=== PATIENT | female | born 1975 | race African-American/Black ===

== ENCOUNTER 2021-11-27 19:01 | Emergency (ER) | payer SELFPAY ==
[~2021-11-27] VITALS: Ht 170.2 cm; Wt 78.0 kg
[2021-11-27 19:04] VITALS: BP 124/78
[2021-11-27] MEDS ORDERED: LORAZEPAM 1MG TABLET PO ONE (19:30)
== END 2021-11-27 22:23 | disposition home or self-care (01) ==
LOC: ER 19:01
DX: F43.9 Reaction to severe stress, unspecified (principal); F20.9 Schizophrenia, unspecified
CPT/HCPCS: 93005; 99283

== ENCOUNTER 2021-11-28 01:02 | Emergency (ER) | payer MEDICAID ==
[~2021-11-28] VITALS: Ht 154.9 cm; Wt 68.3 kg
[2021-11-28 03:30] VITALS: BP 101/57
== END 2021-11-28 04:54 | disposition home or self-care (01) ==
LOC: ER 01:02
DX: G47.00 Insomnia, unspecified (principal); Z59.02 Unsheltered homelessness
CPT/HCPCS: 99281